=== PATIENT | male | born 1950 | race Caucasian/White ===

== ENCOUNTER 2018-10-14 08:55 | Inpatient (IN) | payer MEDICARE ==
[~2018-10-14] VITALS: Ht 185.4 cm; Wt 99.8 kg
[2018-10-14] MEDS ORDERED: LACTATED RINGERS 1,000 ML IV SCH (10:00)
[2018-10-14 11:38] LABS: T4 FREE 1.03 ng/dL (0.76-1.46)
[2018-10-14] MEDS ORDERED: TAP5 PO (11:38)
[2018-10-14] MEDS ORDERED: ASPI-1159 PO (11:38)
[2018-10-14] MEDS ORDERED: AMLO5TAB88 PO (11:38)
[2018-10-14] MEDS ORDERED: LISI-649 PO (11:38)
[2018-10-14] MEDS ORDERED: LIP40 PO (11:39)
[2018-10-14] MEDS ORDERED: BUPIVACAINE HCL 0.5% (5MG/ML) 50ML ONE (12:30)
[2018-10-14] MEDS ORDERED: SKIN ADHESIVE 0.7 GM EA TOP ONE (12:32)
[2018-10-14] MEDS ORDERED: BUPIVACAINE HCL/PF 0.5% (5MG/ML) 10ML ONE (12:33)
[2018-10-14] MEDS ORDERED: LIDOCAINE HCL 1% 20ML VIAL (Pyxis) INJ ONE ×2 (12:33→14:00)
[2018-10-14] MEDS ORDERED: BACITRACIN 50,000 UNITS/VIAL ONE (12:33)
[2018-10-14] MEDS ORDERED: NORMAL SALINE 0.9% 10 ML SYR ONE (12:33)
[2018-10-14] MEDS ORDERED: MIDAZOLAM HCL 2 MG/2 ML VIAL ONE (13:38)
[2018-10-14] MEDS ORDERED: PROPOFOL 200MG/20ML VIAL IV ONE (13:38)
[2018-10-14] MEDS ORDERED: GLYCOPYRROLATE 0.2 MG/ML 2ML VIAL ONE ×2 (13:38→14:30)
[2018-10-14] MEDS ORDERED: ROCURONIUM BROMIDE 10MG/ML VIAL 5ML IV ONE ×2 (13:38→14:29)
[2018-10-14] MEDS ORDERED: SUCCINYLCHOLINE CHLORIDE 200MG/10ML IV ONE (14:00)
[2018-10-14] MEDS ORDERED: VERAPAMIL HCL 2.5 MG/1 ML 2ML VIAL IV ONE (14:02)
[2018-10-14] MEDS ORDERED: NEOSTIGMINE METHYLSULFATE 1MG/ML 10 ML VIAL ONE (14:30)
[2018-10-14] MEDS ORDERED: FENTANYL CITRATE/PF 50MCG/ML 2ML VIAL ONE (15:26)
[2018-10-14] MEDS ORDERED: HYDROMORPHONE HCL/PF 2MG/ML CPJ IV PRN (16:00)
[2018-10-14] MEDS ORDERED: ONDANSETRON HCL 4MG/2ML INJ IV PRN ×2 (16:00)
[2018-10-14] MEDS ORDERED: MEPERIDINE HCL/PF 25MG/ML CPJ IV PRN (16:00)
[2018-10-14] MEDS ORDERED: MORPHINE SULFATE 2 MG/ML CPJ (NOT FOR IM USE) IV PRN (16:00)
[2018-10-14] MEDS: HYDROMORPHONE HCL/PF 2MG/ML CPJ IV PRN ×3 (16:53→18:01)
[2018-10-14] MEDS ORDERED: SODIUM CHLORIDE 0.9% 1,000 ML IV ONE (17:30)
[2018-10-14 20:40] VITALS: BP 117/66
[2018-10-14] MEDS: SODIUM CHLORIDE 0.45% 1,000 ML IV SCH (23:40)
[2018-10-14] MEDS: KETOROLAC 30MG/ML VIAL IV SCH (23:40)
[2018-10-15] VITALS (8 sets, daily range): BP systolic 103–134; BP diastolic 61–79
[2018-10-15] MEDS: KETOROLAC 30MG/ML VIAL IV SCH ×3 (05:26→18:18)
[2018-10-15] MEDS ORDERED: METHIMAZOLE 5MG TABLET PO SCH (09:00)
[2018-10-15] MEDS ORDERED: HYDROCHLOROTHIAZIDE 25MG TABLET PO SCH (09:00)
[2018-10-15] MEDS ORDERED: AMLODIPINE 5MG TABLET PO SCH (09:00)
[2018-10-15] MEDS ORDERED: LISINOPRIL 20MG TABLET PO SCH (09:00)
[2018-10-15] MEDS: SODIUM CHLORIDE 0.45% 1,000 ML IV SCH (11:56)
[2018-10-15] MEDS ORDERED: ATORVASTATIN CALCIUM 40MG TABLET PO SCH (21:00)
== END 2018-10-15 19:15 | disposition home or self-care (01) | DRG 355 ==
LOC: OR 08:55 → 7WST 20:35
PROVIDERS: ADMIT Specialist; ATTEND Specialist
PROC: 0WUF4JZ Supplement Abdominal Wall with Synthetic Substitute, Percutaneous Endoscopic Approach (ICD-10-PCS; principal; 2018-10-14)
DX: K43.0 Incisional hernia with obstruction, without gangrene (principal); I10 Essential (primary) hypertension; E78.5 Hyperlipidemia, unspecified; K42.9 Umbilical hernia without obstruction or gangrene; E66.9 Obesity, unspecified; G47.30 Sleep apnea, unspecified; I25.10 Atherosclerotic heart disease of native coronary artery without angina pectoris; Z68.29 Body mass index [BMI] 29.0-29.9, adult; Z92.3 Personal history of irradiation; Z90.49 Acquired absence of other specified parts of digestive tract; Z79.899 Other long term (current) drug therapy; Z79.82 Long term (current) use of aspirin
CPT/HCPCS: 36415; 84439; 84443; 84481; 88302; C1781; J0330; J1170; J1885; J2250; J2405; J2704; J2710; J3010; J3490